=== PATIENT | female | born 2000 | race Caucasian/White ===

== ENCOUNTER 2020-05-11 18:22 | Emergency (ER) | payer OTHER ==
[~2020-05-11 18:22] MED LIST: MEDROL4 MG PO; TORADOL 10 MG T10 MG PO
[2020-05-11] MEDS ORDERED: NAPROSYN500 MG PO (21:07)
[2020-05-11] MEDS ORDERED: CYCLOBENZAPRINE5 MG PO (21:07)
== END 2020-05-11 21:30 | disposition home or self-care (01) ==
LOC: ER1 18:22
DX: S16.1XXA Strain of muscle, fascia and tendon at neck level, initial encounter (principal); S40.012A Contusion of left shoulder, initial encounter; S50.02XA Contusion of left elbow, initial encounter; S90.02XA Contusion of left ankle, initial encounter; V48.5XXA Car driver injured in noncollision transport accident in traffic accident, initial encounter; Y92.410 Unspecified street and highway as the place of occurrence of the external cause
CPT/HCPCS: 73030; 73080; 73610; 99283